=== PATIENT | female | born 1960 | race Caucasian/White ===

== ENCOUNTER 2023-01-03 08:03 | Day surgery (SDC) | payer BC, MEDICAID ==
[2023-01-03] MEDS ORDERED: Propofol 200 MG/20 ML SDV ONE (08:18)
[2023-01-03] MEDS ORDERED: fentaNYL 50 MCG/ML SDV ONE (08:18)
[2023-01-03] MEDS ORDERED: Midazolam 1 MG/ML 2 ML SDV ONE (08:18)
[2023-01-03] MEDS ORDERED: Lactated Ringers 1,000 ML IV SCH (08:30)
== END 2023-01-03 11:05 | disposition home or self-care (01) ==
LOC: JP.SDS 08:03
PROVIDERS: ATTEND Student in an Organized Health Care Education/Training Program
DX: Z12.11 Encounter for screening for malignant neoplasm of colon (principal); D12.3 Benign neoplasm of transverse colon; K62.1 Rectal polyp; K21.9 Gastro-esophageal reflux disease without esophagitis; Z80.0 Family history of malignant neoplasm of digestive organs
CPT/HCPCS: 45380; 88305; J2250; J2704; J3010; J7120